=== PATIENT | female | born 1965 | race Two or more races ===

== ENCOUNTER 2016-12-20 17:03 | Emergency (ER) | payer MEDICAID ==
[~2016-12-20] VITALS: Ht 167.6 cm; Wt 108.9 kg
[2016-12-20] MEDS ORDERED: AMLO5TAB2 PO (18:18)
[2016-12-20] MEDS ORDERED: ASPI81TA27 PO (18:18)
[2016-12-20] MEDS ORDERED: CITA10TA70 PO (18:18)
[2016-12-20] MEDS ORDERED: DOCU-94 PO (18:19)
[2016-12-20] MEDS ORDERED: CYCL1TAB18 PO (18:19)
[2016-12-20] MEDS ORDERED: GABA-497 PO (18:19)
[2016-12-20] MEDS ORDERED: LEV50T PO (18:20)
[2016-12-20] MEDS ORDERED: INSLANTI SC (18:22)
[2016-12-20] MEDS ORDERED: ESCI10TA PO (18:22)
[2016-12-20] MEDS ORDERED: MORP15TA PO (18:22)
[2016-12-20] MEDS ORDERED: PIP3PBAE IV (18:23)
[2016-12-20] MEDS ORDERED: PRAV20TA3 PO (18:24)
[2016-12-20] MEDS ORDERED: VANC500I IV (18:24)
[2016-12-20] MEDS ORDERED: TRAM50TA2 PO (18:24)
[2016-12-20] MEDS ORDERED: ONDANSETRON HCL 4 MG/2 ML VIAL IV ONE (18:30)
[2016-12-20] MEDS ORDERED: MORPHINE SULFATE 4 MG/ML SYRG IV ONE ×2 (18:30→21:15)
[2016-12-20 18:31] LABS: Basophils # (auto) 0.1 uL; Basophils % (auto) 1.5 % (0.0-2.0); CONDITION Y; DEFINITIVE SEE PRINTOUT; Eosinophils # (auto) 0.4 uL; Hematocrit 24.8 % (36.0-46.0); Hemoglobin 8.4 g/dL (12.2-16.2); Lymphocytes # (auto) 1.8 uL; Mean Corpuscular Hemoglobin 30.7 pg (28.0-32.0); Mean Corpuscular Hgb Conc. 33.8 g/dL (32.0-36.0); Mean Corpuscular Volume 90.8 fL (80.0-100.0); Mean Platelet Volume 8.9 fL (7.4-10.4); Monocytes # (auto) 0.7 uL; Monocytes % (auto) 8.7 % (0.0-12.0); Neutrophils # (auto) 4.8 uL; Neutrophils % (auto) 61.8 % (37.0-80.0); Platelet Count (auto) 263 10^3/uL (140-450); Red Cell Distribution Width 20.2 % (11.6-16.0); White Blood Cell 7.8 10^3/uL (4.4-10.8)
[2016-12-20] MEDS ORDERED: SODIUM CHLORIDE 0.9% 1,000 ML IV ONE (18:38)
[2016-12-20] MEDS ORDERED: IPRATROPIUM BROM 0.5 MG/2.5ML INH SOL NEB ONE (18:45)
[2016-12-20] MEDS ORDERED: ALBUTEROL SULF 2.5 MG/0.5ML(0.5%) NEB SOLN NEB ONE (18:45)
[2016-12-20 18:59] LABS: Albumin 2.1 g/dL (3.4-5.0); BUN/Creatinine Ratio 10.3; Calcium 8.3 mg/dL (8.5-10.1); Magnesium 2.2 mg/dL (1.6-2.6); Potassium 4.2 mmol/L (3.5-5.1)
[2016-12-20 19:04] LABS: Bilirubin, Total 1.9 mg/dL (0.2-1.0)
[2016-12-20] MEDS ORDERED: ENOXAPARIN SOD 120 MG/0.8 ML SYRINGE SC ONE (19:30)
[2016-12-20 19:58] LABS: B-Type Natriuretic Peptide 213.89 pg/mL (0-100)
[2016-12-20 20:06] LABS: Temperature: 23.9 C (20.0-25.0)
[2016-12-20] MEDS ORDERED: MORPHINE SULFATE 4 MG/ML SYRG ONE (21:09)
[2016-12-20] MEDS ORDERED: ONDANSETRON HCL 4 MG/2 ML VIAL ONE (21:09)
[2016-12-21] VITALS: BP 140/77
== END 2016-12-21 00:06 | disposition short-term general hospital (02) ==
LOC: ER 17:06
DX: J18.9 Pneumonia, unspecified organism (principal); E43 Unspecified severe protein-calorie malnutrition; Z68.38 Body mass index [BMI] 38.0-38.9, adult; R79.89 Other specified abnormal findings of blood chemistry; R74.8 Abnormal levels of other serum enzymes; Z79.899 Other long term (current) drug therapy; Z79.82 Long term (current) use of aspirin; E11.9 Type 2 diabetes mellitus without complications; E78.5 Hyperlipidemia, unspecified; I10 Essential (primary) hypertension
CPT/HCPCS: 36415; 71010; 80053; 83735; 83880; 84484; 85025; 87040; 93005; 93970; 94640; 96361; 96372; 96374; 96375; 96376; 99285; J1650; J2270; J2405; J7030